=== PATIENT | female | born 1985 | race Caucasian/White ===

== ENCOUNTER 2016-10-07 05:36 | Inpatient (IN) | payer OTHER ==
[2016-10-07] VITALS (8 sets, daily range): BP systolic 119–148; BP diastolic 64–91
[~2016-10-07] VITALS: Ht 160 cm; Wt 95.0 kg
[~2016-10-07 05:36] MED LIST: GLIM1TAB PO; PRENTAB55 PO; RANI15TA PO
[2016-10-07 06:20] LABS: MEAN CORPUSCULAR HEMOGLOBIN 29.4 pg (27.0-33.0); MEAN CORPUSCULAR HGB CONC 33.6 g/dl (32.0-36.5); MEAN CORPUSCULAR VOLUME 87.7 fl (80.0-96.0); RED CELL DISTRIBUTION WIDTH 13.9 % (11.5-14.5); WHITE BLOOD COUNT 11.3 K/mm3 (4.0-10.0)
[2016-10-07] MEDS ORDERED: OXYTOCIN INJ 10 UNITS/ML VIAL (J2590) As Ordered ONE (07:13)
[2016-10-07] MEDS ORDERED: LR 1,000 ML IV SCH (07:15)
[2016-10-07] MEDS ORDERED: MORPHINE PRES-FREE INJ 10 MG/10 ML VIAL (J2274) As Ordered ONE (07:16)
[2016-10-07] MEDS ORDERED: BICITRA 30ML SOLN UDC PO ONE (07:30)
[2016-10-07] MEDS ORDERED: NALOXONE INJ 0.4 MG/1 ML VIAL (J2310) IV PRN ×2 (07:54)
[2016-10-07] MEDS ORDERED: NALBUPHINE HCL 10 MG/ML AMP (J2300) IV PRN ×2 (07:54→09:45)
[2016-10-07] MEDS ORDERED: ONDANSETRON 4MG/2ML VIAL (J2405) IV PRN ×2 (07:54→09:45)
[2016-10-07] MEDS ORDERED: METOCLOPRAMIDE INJ 10MG/2ML VIAL (J2765) IV PRN (07:54)
[2016-10-07] MEDS ORDERED: dexameTHASONE 4 MG/ML 1ML VIAL (J1100) As Ordered ONE (08:04)
[2016-10-07] MEDS ORDERED: PHENYLephrine HCL 500 MCG/5 ML (100MCG/ML) SYRINGE (J2370) As Ordered ONE ×2 (08:07→09:06)
[2016-10-07] MEDS ORDERED: ONDANSETRON 4MG/2ML VIAL (J2405) As Ordered ONE (08:07)
[2016-10-07] MEDS: PRENATAL VITAMIN TAB PO SCH (09:00)
[2016-10-07] MEDS: DOCUSATE SODIUM 100 MG CAP PO SCH ×2 (09:00→20:15)
[2016-10-07] MEDS ORDERED: MEASLES,MUMPS,RUBELLA VACCINE INJ (MMR-II) (90707) SC SCH (09:30)
[2016-10-07] MEDS ORDERED: PERCOCET 5MG/325MG TAB PO PRN ×2 (09:30→09:45)
[2016-10-07] MEDS ORDERED: RHOGAM 300 MCG (1500 IU) INJ (J2790) IM SCH (09:30)
[2016-10-07] MEDS ORDERED: KETOROLAC 30 MG/ML VIAL (J1885) IV PRN (09:45)
[2016-10-07] MEDS ORDERED: ePHEDrine SULFATE 25 MG/5 ML(5MG/ML) SYRINGE IV SCH (09:45)
[2016-10-07] MEDS ORDERED: fentaNYL 100 MCG/2 ML INJECTION (J3010) IV PRN (09:45)
[2016-10-07] MEDS: KETOROLAC 30 MG/ML VIAL (J1885) IV SCH ×3 (12:12→23:59)
[2016-10-08 02:00] VITALS: BP 111/72
[2016-10-08 05:42] VITALS: BP 110/59
[2016-10-08] MEDS: KETOROLAC 30 MG/ML VIAL (J1885) IV SCH (06:38)
[2016-10-08 06:42] LABS: MEAN CORPUSCULAR HEMOGLOBIN 29.8 pg (27.0-33.0); MEAN CORPUSCULAR VOLUME 90.2 fl (80.0-96.0); RED CELL DISTRIBUTION WIDTH 13.9 % (11.5-14.5); WHITE BLOOD COUNT 12.1 K/mm3 (4.0-10.0)
[2016-10-08] MEDS: PRENATAL VITAMIN TAB PO SCH (08:49)
[2016-10-08] MEDS: DOCUSATE SODIUM 100 MG CAP PO SCH ×2 (08:49→21:59)
--- NOTE | 2016-10-08 08:59 | IPNPDOC ---
Text Note Date of Service The patient was seen on 10/08/16. NOTE POD1 Prog note ERCS yest AM. States doing well, no complaints. No heavy VB, no CP/LP/SOB. Bonding well with . Voiding, ambulatory and no N/V. Pain controlled. [employer] CDI, bandage removed Ext no CCE HCT 33.8 this AM a/p: Doing well, likely d/c tomorrow AM. Sessions VS,Sushant, I+O VSSushant I+O Laboratory Tests 10/08/16 06:21 Red Blood Count 3.74 L, Mean Corpuscular Volume 90.2, Mean Corpuscular Hemoglobin 29.8, Mean Corpuscular Hemoglobin Concent 33.0, Red Cell Distribution Width 13.9 Vital Signs Date Time Temp Pulse Resp B/P (MAP) Pulse Ox O2 Delivery O2 Flow Rate FiO2 10/08/16 05:42 97.9 84 16 110/59 (76) 99 Room Air I&O- Last 24 Hours up to 6 AM 10/08/16 06:00 Intake Total 1840 ml Output Total 2535 ml Balance -695 ml SAMI BOTELLO MD October 08, 2016 08:59
[2016-10-08 10:06] VITALS: BP 133/78
--- NOTE | 2016-10-08 10:36 | RO ---
DATE OF PROCEDURE: 10/07/2016 PREPROCEDURE DIAGNOSES: 1. Single intrauterine at 39 weeks. 2. History of prior section. 3. A2GDM treated with glyburide. POSTPROCEDURE DIAGNOSES: 1. Single intrauterine at 39 weeks, delivered. 2. History of prior section. 3. A2GDM treated with glyburide. 4. Dense intra-abdominal adhesions. Uterus densely adherent to the anterior abdominal wall. PROCEDURE: Repeat low transverse section. SURGEON: Dr. Radha Richards. ASSISTANT PROJECT MANAGER: Dr. Maik Agustin. ANESTHESIA: Spinal. MATERIAL FORWARDED TO LABORATORY: None. INFECTION CLASSIFICATION: 2 ESTIMATED BLOOD LOSS: 500 mL. FLUIDS: 1400 mL of lactated Ringers. URINE OUTPUT: 125 mL of clear yellow urine. INDICATION FOR OPERATION: Laura is a 31-year-old G5, now P4-0-1-4 at 39 weeks gestation with a history of three prior sections and A2GDM treated with glyburide, scheduled for a repeat indicated section. She declines tubal ligation and desires further fertility in the future. DESCRIPTION OF FINDINGS: Male in occiput posterior (OP) position. Apgars 9 and 10, weight 3906 grams or 8 pounds 10 ounces There was thick adhesions in the subcutaneous layer as well as the rectus muscle sheaths densely adhesed and the uterus was adhesed to the anterior abdominal wall densely at the fundus such that it could not be exteriorized during the surgery and we were not able to visualized the fallopian tubes and ovaries. Would recommend in the future, if she needs a hysterectomy, that it would be performed abdominally. DESCRIPTION OF PROCEDURE: Laura was taken to the operating room. Spinal anesthesia was administered. Joshua catheter and bilateral sequential compression devices were placed. She was given 2 grams of Ancef prophylactically. She was prepped and draped in normal sterile fashion in the dorsal supine position with a left lateral tilt. Time out was performed to confirm patient name, date of , procedure and indication and the team was in agreement. Spinal anesthesia was found to be adequate using an Allis clamp. Pfannenstiel skin incision was made with the scalpel through her previous Pfannenstiel scar and carried through to the underlying layer of fascia. The fascia was incised and the incision was extended laterally with Moses scissors. The superior and inferior aspects of the fascial incisions were grasped with Luna clamps, elevated and the underlying rectus muscles were dissected off bluntly and sharply. She had thick scar tissue involving subcutaneous tissue and fascia. The peritoneum was entered sharply with liz clamps and a scalpel and the rectus muscles were in the midline with the use of Bovie to take down thick bands of adhesions. There was good visualization of the bladder. The vesicouterine peritoneum was identified, grasped with pickups and entered sharply with Metzenbaum scissors. The incision was extended laterally and the bladder flap created digitally, though the peritoneum was friable and somewhat fell apart. The bladder blade was reinserted. The lower uterine segment was scored in a transverse fashion with the scalpel. The uterus was entered bluntly and the incision was extended with traction with clear amniotic fluid noted. The amniotic fluid was copious in amount. The bladder blade was removed and the infant's head was elevated to the level of the incision. Fundal pressure was applied and the head was delivered atraumatically in the occiput transverse (OT) position. The anterior shoulder, posterior shoulder and corpus were delivered without difficulty. Nose and mouth were suctioned with bulb suction and the cord was clamped times two and cut. The was handed off to the awaiting team. Spontaneous cry was noted immediately upon delivery. The placenta was removed with firm traction on the cord. The uterus could not be exteriorized secondary to thick adhesion of the uterus to the anterior abdominal wall, but uterus was cleared of all clot and debris. The uterine incision was repaired in one layer with 0 Vicryl suture in a running locking fashion. The uterine incision was inspected and hemostasis was noted. The fascia was reapproximated with 0 Vicryl suture in a running fashion. Subcutaneous tissue was copiously irrigated. Aisha's fascia was reapproximated using #3-0 Vicryl suture in a running fashion. The skin edges were reapproximated using three inverted interrupted stitches using #3-0 Vicryl suture followed by running subcuticular stitches using #4-0 Monocryl suture. The incision was cleared using wet lap and dried with a dry lap, Steri-Strips were applied in the usual fashion perpendicular to the Pfannenstiel incision. Two strips of Telfa were layered on top of the Steri-Strips followed by dry sterile towel. Surgical drapes were removed. The sterile towel was removed and a pressure dressing was applied over the entire surgical incision. Fundus was firm at U-1. All counts were correct times two. The procedure was without complication and she tolerated the procedure well. The patient was taken to the recovery room on labor and delivery in stable condition. DIONY
[2016-10-08] MEDS: IBUPROFEN 800 MG TAB PO SCH ×2 (13:37→22:00)
[2016-10-08 14:00] VITALS: BP 138/82
[2016-10-08 18:09] VITALS: BP 134/71
[2016-10-08] MEDS: PERCOCET 5MG/325MG TAB PO PRN ×2 (18:21→23:41)
[2016-10-08 21:44] VITALS: BP 134/71
[2016-10-09 05:40] VITALS: BP 136/71
[2016-10-09] MEDS: IBUPROFEN 800 MG TAB PO SCH (06:23)
[2016-10-09] MEDS: DOCUSATE SODIUM 100 MG CAP PO SCH (08:24)
[2016-10-09] MEDS: PRENATAL VITAMIN TAB PO SCH (08:24)
[2016-10-09] MEDS ORDERED: IBUP-1114 PO (09:31)
[2016-10-09] MEDS ORDERED: OXYC1TAB23 PO (09:31)
[2016-10-09] MEDS ORDERED: COLA100C3 PO (09:31)
== END 2016-10-09 13:30 | disposition home or self-care (01) | DRG 766 ==
LOC: M LDI 05:36 → M OBS 11:09
PROVIDERS: ADMIT Obstetrics & Gynecology; ATTEND Obstetrics & Gynecology
PROC: 10D00Z1 Extraction of Products of Conception, Low, Open Approach (ICD-10-PCS; principal; 2016-10-07 07:30)
DX: O24.425 Gestational diabetes mellitus in childbirth, controlled by oral hypoglycemic drugs (principal); O34.211 Maternal care for low transverse scar from previous cesarean delivery; Z37.0 Single live birth; Z3A.39 39 weeks gestation of pregnancy